=== PATIENT | female | born 1985 | race Two or more races ===

== ENCOUNTER → 2024-09-09 | Outpatient (CLI) | payer OTHER, MEDICAID, SELFPAY ==
--- NOTE | 2024-09-09 10:01 | XR_ITS ---
Examination: Foot, right, 3 views Technique: AP, oblique, lateral views foot, 3 views Date and time of exam: September 09, 2024 1037 hours INDICATIONS: Lump on the top of the metatarsals 10 months. FINDINGS: Moderate osteopenia. No fracture or dislocation. Mild narrowing first metatarsophalangeal joint. No bony exostosis. 4 mm plantar bony calcaneal spur IMPRESSION: No bony exostosis. 4 mm plantar bony calcaneal spur
== END | disposition home or self-care (01) ==
PROVIDERS: PCP Internal Medicine
DX: M77.31 Calcaneal spur, right foot (principal)
CPT/HCPCS: 73630